=== PATIENT | female | born 1960 | race Two or more races ===

== ENCOUNTER 2022-10-30 18:08 | Emergency (ER) | payer OTHER ==
[~2022-10-30] VITALS: Ht 152.4 cm; Wt 58.5 kg
[2022-10-30] MEDS ORDERED: SIMVASTATIN20 MG PO (18:38)
== END 2022-10-30 19:20 | disposition home or self-care (01) ==
LOC: ER 18:08
DX: M94.0 Chondrocostal junction syndrome [Tietze] (principal)